=== PATIENT | male | born 1960 | race Caucasian/White ===

== ENCOUNTER 2017-08-15 04:42 | Emergency (ER) | payer OTHER ==
[~2017-08-15] VITALS: Ht 182.9 cm; Wt 99.3 kg
[~2017-08-15 04:42] MED LIST: DILANTIN BRAND100 MG PO; DILANTIN100 MG PO
[2017-08-15 05:36] LABS: ALBUMIN 4.3 g/dL (3.2-4.8); CHLORIDE 97 mEq/L (99-109); POTASSIUM 5.1 mEq/L (3.7-5.4); SODIUM 133 mEq/L (136-147)
[2017-08-15 05:38] LABS: GLUCOSE 181 mg/dL (70-99)
[2017-08-15 05:39] LABS: TOTAL PROTEIN 7.8 g/dL (6.4-8.3)
[2017-08-15 05:40] LABS: TOTAL BILIRUBIN 0.5 mg/dL (0.0-1.0)
[2017-08-15 05:42] LABS: ALKALINE PHOSPHATASE 72 IU/L (3-129); GFR ESTIMATE (CALCULATED) > 59 mL/min/ (58.99-99999)
[2017-08-15 05:43] LABS: UREA NITROGEN (BUN) 10 mg/dL (9-23)
[2017-08-15 05:44] LABS: AST (GOT) 58 IU/L (2-34)
[2017-08-15 05:45] LABS: ALT (GPT) 46 IU/L (3-49)
[2017-08-15 05:46] LABS: HEMATOCRIT 42.4 % (38.0-50.0); HEMOGLOBIN 14.4 G/DL (12.5-16.6); MCH 33.6 PG (29.0-34.0); MCV 98.8 FL (86-99); PLATELET COUNT 255 K/uL (156-360); RBC DIS.WIDTH-CV 13.4 % (11.8-14.6); RED BLOOD COUNT 4.29 M/uL (4.00-5.50); WHITE BLOOD COUNT 10.9 K/uL (4.1-10.2)
[2017-08-15 07:39] VITALS: BP 152/83
== END 2017-08-15 07:40 | disposition home or self-care (01) ==
LOC: EME 04:42
PROVIDERS: Emergency Medicine
DX: G40.909 Epilepsy, unspecified, not intractable, without status epilepticus (principal); S50.312A Abrasion of left elbow, initial encounter; W06.XXXA Fall from bed, initial encounter; Y92.003 Bedroom of unspecified non-institutional (private) residence as the place of occurrence of the external cause; M48.02 Spinal stenosis, cervical region; M25.78 Osteophyte, vertebrae; F17.200 Nicotine dependence, unspecified, uncomplicated
CPT/HCPCS: 70450; 72125; 80053; 80185; 85027; 99281; 99284; J2250

== ENCOUNTER 2018-01-04 20:17 | Emergency (ER) | payer OTHER ==
[~2018-01-04] VITALS: Ht 172.7 cm; Wt 87.0 kg
[2018-01-05 00:53] VITALS: BP 118/74
== END 2018-01-05 00:53 | disposition home or self-care (01) ==
LOC: EME → EDBD 20:17 → EME 20:17
DX: S01.01XA Laceration without foreign body of scalp, initial encounter (principal); S00.83XA Contusion of other part of head, initial encounter; F10.10 Alcohol abuse, uncomplicated; W19.XXXA Unspecified fall, initial encounter; Z23 Encounter for immunization; I10 Essential (primary) hypertension; R56.9 Unspecified convulsions; F17.200 Nicotine dependence, unspecified, uncomplicated
CPT/HCPCS: 70450; 70486; 99281; 99284